=== PATIENT | male | born 1990 | race Caucasian/White ===

== ENCOUNTER 2019-03-24 21:35 | Emergency (ER) | payer BC ==
[~2019-03-24] VITALS: Ht 200.7 cm; Wt 97.5 kg
--- NOTE | 2019-03-24 22:20 | NUR ---
Dr. Slade at bedside for MSE.
--- NOTE | 2019-03-24 22:33 | NUR ---
Patient discharged to home in stable conditon. Written and verbal after care instructions given. Patient verbalizes understanding of instructions. Pt ambulated out of ER with steady gait, no acute signs of distress, VSS, all belongings taken.
[2019-03-24 22:34] VITALS: BP 120/74
== END 2019-03-24 22:35 | disposition home or self-care (01) ==
LOC: ER 21:35
DX: S31.31XA Laceration without foreign body of scrotum and testes, initial encounter (principal); W26.8XXA Contact with other sharp object(s), not elsewhere classified, initial encounter; Y93.89 Activity, other specified; Y92.89 Other specified places as the place of occurrence of the external cause; Y99.8 Other external cause status
CPT/HCPCS: A4663